=== PATIENT | female | born 1945 | race Asian ===

== ENCOUNTER 2016-08-25 01:00 | Inpatient (IN) | payer MEDICARE, OTHER ==
[~2016-08-25] VITALS: Ht 162.6 cm; Wt 66.2 kg
[~2016-08-25 01:00] MED LIST: AMLO5TAB66 PO; ASPI-556 PO; BRINOS OU; COMB5OS OU; LUBI24CA2 PO; MONT10TA21 PO; OMEP20 PO; ROSU10 PO
[2016-08-25] MEDS ORDERED: ATOR20TA86 PO (01:12)
[2016-08-25] MEDS ORDERED: ACLI400A2 IH (01:12)
[2016-08-25] MEDS ORDERED: VALS160T2 PO (01:12)
[2016-08-25 01:37] LABS: BASOPHILS # (AUTO) 0.07 K/uL (0.00-0.20); BASOPHILS % (AUTO) 0.7 % (0.0-2.0); EOSINOPHILS # (AUTO) 0.36 K/uL (0.00-0.70); EOSINOPHILS % (AUTO) 3.46 % (1.0-6.0); HEMATOCRIT 39.4 % (36-46); HEMOGLOBIN 13.4 g/dL (12.0-16.0); LYMPHOCYTES # (AUTO) 4.6 K/uL (1.0-4.8); LYMPHOCYTES % (AUTO) 43.3 % (22.0-44.0); MEAN CORPUSCULAR HEMOGLOBIN 31.7 pg (26.0-34.0); MEAN CORPUSCULAR HGB CONC 33.9 G/dL (31.0-37.0); MEAN CORPUSCULAR VOLUME 93 fL (80-100); MONOCYTES # (AUTO) 0.9 K/uL (0.1-1.0); MONOCYTES % (AUTO) 8.9 % (2.0-9.0); NEUTROPHILS # (AUTO) 4.6 K/uL (1.8-7.7); NEUTROPHILS % (AUTO) 43.7 % (40.0-70.0); PLATELET COUNT (AUTO) 279 K/uL (150-450); RED BLOOD CELL COUNT(AUTO) 4.22 MIL/uL (4.00-5.20); RED CELL DISTRIBUTION WIDTH 13.3 % (11.5-14.5); WHITE BLOOD COUNT (AUTO) 10.5 K/uL (4.5-11.0)
[2016-08-25 01:51] LABS: ANION GAP 8 mmol/L (8-16); CALCIUM, TOTAL 8.8 mg/dL (8.8-10.5); CARBON DIOXIDE 28 mmol/L (22-29); CHLORIDE 103 mmol/L (98-107); CREATININE 0.82 mg/dL (0.60-1.30); GLOMERULAR FILTR. RATE CALC > 60 mL/min (>60); POTASSIUM 3.8 mmol/L (3.5-5.1); SODIUM SERUM 139 mmol/L (136-145); UREA NITROGEN, BLOOD 10 mg/dL (7-18)
[2016-08-25 01:58] LABS: ALANINE AMINOTRANSFERASE 52 U/L (12-78); ALBUMIN 3.8 g/dL (3.4-5.0); ASPARTATE AMINOTRANSFERASE 37 U/L (15-37); BILIRUBIN,TOTAL 0.9 mg/dL (0.1-1.0); TOTAL PROTEIN, SERUM 7.6 g/dL (6.4-8.2)
[2016-08-25 02:01] LABS: B-TYPE NATRIURETIC PEPTIDE 8 pg/mL (0-100)
[2016-08-25] MEDS ORDERED: NITROGLYCERIN 0.4 MG SUBLINGUAL TABLET #25 SL ONE (02:15)
[2016-08-25] MEDS ORDERED: ASPIRIN 325 MG TABLET PO ONE (02:15)
[2016-08-25] MEDS ORDERED: NITROGLYCERIN 2% (1 GM=INCH) PACKET TP ONE (02:15)
[2016-08-25] MEDS ORDERED: 0.9% SODIUM CHLORIDE 10 ML SYRINGE IVP PRN (02:30)
[2016-08-25] MEDS ORDERED: ONDANSETRON HCL 4 MG/2 ML VIAL IVP PRN ×2 (02:30→04:00)
[2016-08-25] MEDS ORDERED: ACETAMINOPHEN 325 MG TABLET PO PRN ×2 (02:30→04:00)
[2016-08-25 03:02] LABS: APPEARANCE,URINE CLEAR (CLEAR); GLUCOSE, URINE (UA) NEGATIVE (NEGATIVE); KETONES,URINE NEGATIVE (NEGATIVE); LEUKOCYTE ESTERASE ,URINE NEGATIVE (NEGATIVE); OCCULT BLOOD,URINE NEGATIVE (NEGATIVE); PH,URINE 7.5 (5.0-8.0); PROTEIN,URINE NEGATIVE (NEGATIVE)
[2016-08-25 03:19] LABS: RBC,URINE 0-2 /HPF (0-2); SQUAMOUS EPITHELIAL CELL,UR Rare /LPF (None Seen); WBC,URINE None Seen /HPF (0-5)
[2016-08-25 03:57] VITALS: BP 119/68
[2016-08-25] MEDS ORDERED: MAGNESIUM HYDROXIDE SUSPENSION 30 ML UDCUP PO PRN (04:00)
[2016-08-25] MEDS ORDERED: ZOLPIDEM TARTRATE 5 MG TABLET PO PRN (04:00)
[2016-08-25] MEDS ORDERED: NITROGLYCERIN 0.4 MG SUBLINGUAL TABLET #25 SL PRN (04:00)
[2016-08-25] MEDS ORDERED: BISACODYL 10 MG RECTAL RECTAL SUPPOSITORY PR PRN (04:00)
[2016-08-25] MEDS ORDERED: OxyCODONE HCL/ACETAMINOPHEN 5-325 MG TABLET PO PRN (04:00)
[2016-08-25] MEDS ORDERED: ALBUTEROL SULFATE 2.5 MG/0.5 ML NEB SOLUTION NEB PRN (04:00)
[2016-08-25] MEDS ORDERED: IPRATROPIUM BROMIDE 0.5 MG/2.5 ML NEB SOLUTION NEB PRN (04:00)
[2016-08-25 07:35] VITALS: BP 120/74
[2016-08-25] MEDS ORDERED: LUBIPROSTONE 24 MCG CAPSULE PO SCH (08:00)
[2016-08-25] MEDS ORDERED: PANTOPRAZOLE SODIUM 40 MG DR TABLET PO SCH (09:00)
[2016-08-25] MEDS ORDERED: ATORVASTATIN CALCIUM 20 MG TABLET PO SCH ×2 (09:00→21:00)
[2016-08-25] MEDS ORDERED: AmLODIPine BESYLATE 5 MG TABLET PO SCH ×2 (09:00→21:00)
[2016-08-25] MEDS ORDERED: BRINZOLAMIDE 1% 10 ML OPHTHALMIC SUSPENSION OU SCH (09:00)
[2016-08-25] MEDS ORDERED: VALSARTAN 160 MG TABLET PO SCH (09:00)
[2016-08-25] MEDS ORDERED: MONTELUKAST SODIUM 10 MG TABLET PO SCH ×2 (09:00→21:00)
[2016-08-25] MEDS ORDERED: ASPIRIN 81 MG EC TABLET PO SCH (09:00)
[2016-08-25] MEDS ORDERED: BRIMONIDINE/TIMOLOL 0.2-0.5% 5 ML OPHTHALMIC SOLUTION OU SCH (09:00)
[2016-08-25] MEDS ORDERED: HEPARIN SODIUM,PORCINE 5,000 UNITS/ML VIAL SQ SCH (09:00)
[2016-08-25] MEDS ORDERED: SESTAMIBI TC99M/UD ISOTOPE 1 EA INJ INJ ONE ×2 (09:50→12:20)
[2016-08-25 11:34] VITALS: BP 107/60
[2016-08-25 12:10] VITALS: BP 131/75
[2016-08-25] MEDS ORDERED: REGADENOSON 0.4 MG/5 ML PF SYRINGE IVP ONE ×2 (12:19→19:09)
[2016-08-25 12:25] VITALS: BP 111/58
[2016-08-25 15:24] VITALS: BP 141/78
== END 2016-08-25 19:10 | disposition left against medical advice (07) | DRG 303 ==
LOC: EMS 01:02 → 5S 02:31
PROVIDERS: ADMIT Internal Medicine; ATTEND Internal Medicine
DX: I25.110 Atherosclerotic heart disease of native coronary artery with unstable angina pectoris (principal); H40.9 Unspecified glaucoma; I11.9 Hypertensive heart disease without heart failure; E78.5 Hyperlipidemia, unspecified; J44.9 Chronic obstructive pulmonary disease, unspecified; K59.00 Constipation, unspecified; K21.9 Gastro-esophageal reflux disease without esophagitis; I44.0 Atrioventricular block, first degree; E78.00 Pure hypercholesterolemia, unspecified; Z90.49 Acquired absence of other specified parts of digestive tract; Z79.899 Other long term (current) drug therapy; Z79.82 Long term (current) use of aspirin
CPT/HCPCS: 76700; 78452; 83605; 93005; 93017; 93306; 96372; 96374; 99285; A9500; J1644; J2785

== ENCOUNTER → 2017-07-02 | Outpatient (CLI) | payer MEDICARE, OTHER ==
[~2017-07-02] MED LIST changes: +ACLI400A2 IH; +ATOR20TA86 PO; -OMEP20 PO; -ROSU10 PO; +VALS160T2 PO
== END | disposition home or self-care (01) ==
LOC: RADMN 13:11
PROVIDERS: ATTEND Internal Medicine
DX: I67.2 Cerebral atherosclerosis (principal); G31.89 Other specified degenerative diseases of nervous system; G93.89 Other specified disorders of brain
CPT/HCPCS: 70450

== ENCOUNTER 2017-07-21 07:58 | Emergency (ER) | payer MEDICARE, OTHER ==
[~2017-07-21] VITALS: Ht 160 cm; Wt 64.5 kg
[2017-07-21] MEDS ORDERED: CITA20TA9 PO (08:14)
[2017-07-21] MEDS ORDERED: VITAD1000 PO (08:14)
[2017-07-21] MEDS ORDERED: OMEP20 PO (08:14)
[2017-07-21] MEDS ORDERED: ROSU10 PO (08:14)
[2017-07-21] MEDS: SODIUM PHOS/SODIUM BIPHOS 133 ML ENEMA PR ONE ×2 (08:44→10:08)
[2017-07-21] MEDS: LORazepam 1 MG TABLET PO ONE (09:39)
[2017-07-21 11:30] VITALS: BP 139/68
== END 2017-07-21 11:47 | disposition home or self-care (01) ==
LOC: EMS 07:59
DX: K56.41 Fecal impaction (principal); K21.9 Gastro-esophageal reflux disease without esophagitis; E78.00 Pure hypercholesterolemia, unspecified; J44.9 Chronic obstructive pulmonary disease, unspecified; I10 Essential (primary) hypertension; I25.10 Atherosclerotic heart disease of native coronary artery without angina pectoris; Z79.82 Long term (current) use of aspirin
CPT/HCPCS: 99283

== ENCOUNTER → 2017-08-24 | Outpatient (CLI) | payer MEDICARE, OTHER ==
[~2017-08-24] MED LIST changes: -ACLI400A2 IH; -ATOR20TA86 PO; +CITA20TA9 PO; -LUBI24CA2 PO; +OMEP20 PO; +ROSU10 PO; +VITAD1000 PO
== END | disposition home or self-care (01) ==
LOC: RADMN 09:39
PROVIDERS: ATTEND Specialist
DX: I67.82 Cerebral ischemia (principal); R90.82 White matter disease, unspecified
CPT/HCPCS: 70551; 95816

== ENCOUNTER → 2017-11-01 | Outpatient (CLI) | payer MEDICARE, OTHER ==
[~2017-11-01] MED LIST changes: +CITA-106 PO; -CITA20TA9 PO
== END | disposition home or self-care (01) ==
LOC: RADPV 12:33
PROVIDERS: ATTEND Internal Medicine
DX: K76.89 Other specified diseases of liver (principal); K76.0 Fatty (change of) liver, not elsewhere classified; N13.30 Unspecified hydronephrosis; Z90.49 Acquired absence of other specified parts of digestive tract; K59.00 Constipation, unspecified
CPT/HCPCS: 76700

== ENCOUNTER → 2017-11-17 | Outpatient (CLI) | payer MEDICARE, OTHER ==
[2017-11-17 19:13] LABS: ALBUMIN 3.8 g/dL (3.4-5.0); BILIRUBIN,TOTAL 0.4 mg/dL (0.1-1.0); CALCIUM, TOTAL 8.6 mg/dL (8.8-10.5); CREATININE 1.07 mg/dL (0.60-1.30); POTASSIUM 4.5 mmol/L (3.5-5.1); TOTAL PROTEIN, SERUM 7.9 g/dL (6.4-8.2)
== END | disposition home or self-care (01) ==
LOC: LABPV 14:58
DX: K56.41 Fecal impaction (principal); R14.0 Abdominal distension (gaseous); R63.5 Abnormal weight gain

== ENCOUNTER → 2017-11-18 | Outpatient (CLI) | payer MEDICARE, OTHER ==
[~2017-11-18] MED LIST changes: +IOVERSOL 350 MG/ML 100 ML VIAL ONE
== END | disposition home or self-care (01) ==
LOC: RADMN 07:52
PROVIDERS: ATTEND Internal Medicine
DX: J44.9 Chronic obstructive pulmonary disease, unspecified (principal); I70.0 Atherosclerosis of aorta; K76.0 Fatty (change of) liver, not elsewhere classified; K56.41 Fecal impaction; Z90.49 Acquired absence of other specified parts of digestive tract
CPT/HCPCS: 71260; 72193; 74160; Q9967

== ENCOUNTER → 2017-12-06 | Outpatient (CLI) | payer MEDICARE, OTHER ==
[~2017-12-06] MED LIST changes: -IOVERSOL 350 MG/ML 100 ML VIAL ONE
== END | disposition home or self-care (01) ==
LOC: LABPV 10:14
PROVIDERS: ATTEND Internal Medicine
DX: R73.09 Other abnormal glucose (principal)
CPT/HCPCS: 83036

== ENCOUNTER → 2018-05-02 | Outpatient (CLI) | payer MEDICARE, OTHER | END | disposition home or self-care (01) | LOC: MSR 08:03 | PROVIDERS: ATTEND Internal Medicine | DX: K76.89 Other specified diseases of liver (principal); R94.5 Abnormal results of liver function studies; Z90.49 Acquired absence of other specified parts of digestive tract | CPT/HCPCS: 76700; 86704; 86706; 86803; 87350 ==